=== PATIENT | female | born 1955 | race Two or more races ===

== ENCOUNTER 2016-07-12 17:05 | Emergency (ER) | payer MEDICAID ==
[~2016-07-12] VITALS: Ht 157.5 cm; Wt 68.0 kg
[~2016-07-12 17:05] MED LIST: ASPIRIN81 MG ORAL; ATENOLOL100 MG ORAL; MECLIZINE HCL25 MG ORAL
[2016-07-12 18:08] LABS: APPEARANCE,URINE SLIGHTLY CLOUDY; KETONES,URINE NEGATIVE (NEGATIVE); LEUKOCYTE ESTERASE ,URINE 3+ (NEGATIVE); NITRITE,URINE NEGATIVE (NEGATIVE); PH,URINE 7 (4.5-8.0); PROTEIN,URINE NEGATIVE (NEGATIVE); UROBILINOGEN,URINE NORMAL MG/DL (0.0-1.0)
[2016-07-12 18:13] LABS: BASOPHILS % (AUTO) 0.8 % (0.0-2.0); EOSINOPHILS % (AUTO) 1.3 % (0.0-3.0); LYMPHOCYTES % (AUTO) 31.1 % (20.0-45.0); MEAN CORPUSCULAR HEMOGLOBIN 28.8 PG (27.0-31.0); MEAN CORPUSCULAR HGB CONC 33.9 G/DL (32.0-36.0); MEAN CORPUSCULAR VOLUME 85 FL (80-99); MEAN PLATELET VOLUME 7.2 FL (6.5-10.1); MONOCYTES % (AUTO) 6.4 % (1.0-10.0); NEUTROPHILS % (AUTO) 60.4 % (45.0-75.0); PLATELET COUNT 215 K/UL (150-450); RED BLOOD COUNT 4.57 M/UL (4.20-5.40); RED CELL DISTRIBUTION WIDTH 12.2 % (11.6-14.8); WHITE BLOOD COUNT 10.5 K/UL (4.8-10.8)
[2016-07-12 18:30] LABS: ALANINE AMINOTRANSFERASE 35 U/L (3-33); ALBUMIN/GLOBULIN RATIO 1.5 (1.0-2.7); ANION GAP 17 (5-15); ASPARTATE AMINO TRANSFERASE 22 U/L (5-40); CALCIUM 9.3 mg/dL (8.6-10.2); CARBON DIOXIDE 25 mEQ/L (20-30); CHLORIDE 98 mEQ/L (98-107); CREATININE 0.8 mg/dL (0.5-0.9); GLOMERULAR FILTRATION RATE > 60 mL/min (>60); HEMOLYSIS 10; LIPASE 27 U/L (< 60); POTASSIUM 3.7 mEQ/L (3.4-4.9); SODIUM 140 mEQ/L (135-145); TOTAL PROTEIN 7.2 g/dL (6.6-8.7)
[2016-07-12] MEDS ORDERED: Morphine Sulfate 4mg/ml Inj IVP ONE (18:30)
[2016-07-12 18:38] VITALS: BP 141/48
[2016-07-12 18:50] LABS: BACTERIA,URINE MODERATE /HPF; SQUAMOUS EPITHELIAL CELL,UR FEW /LPF (NONE/OCC)
[2016-07-12 18:51] LABS: YEAST,URINE FEW /HPF
[2016-07-12] MEDS ORDERED: Ketorolac 30mg Inj IV ONE (20:15)
[2016-07-12] MEDS ORDERED: ACETAMINOPHEN-1 EAC1 ORAL (20:16)
[2016-07-12] MEDS ORDERED: NITROFURANTOIN100 M2 ORAL (20:16)
[2016-07-12 20:50] VITALS: BP 148/58
--- NOTE | 2016-07-12 22:06 | Emergency Room Report ---
History of Present Illness General Chief Complaint: Abdominal Pain Source: Patient Present Illness HPI 60-year-old female presents to ED complaining of abdominal pain. States symptoms started today. Pain is sharp. 7/10. Lower abdomen. Nonradiating. No aggravating or relieving factors. Denies fevers or chills. Denies nausea or vomiting. Denies dysuria or hematuria. Denies any other associated symptoms Allergies: Coded Allergies: PENICILLINS (Verified Allergy, 05/08/13) Patient History Past Medical History: HTN Past Surgical History: none Pertinent Family History: none Social History: Denies: alcohol use, drug use, smoking Immunizations: UTD Reviewed Nursing Documentation: PMH: Agreed, PSxH: Agreed Nursing Documentation-PMH Hx Cardiac Problems: Yes - High Cholesterol Hx Hypertension: Yes Hx Pacemaker: No Hx Asthma: No Hx COPD: No Hx Diabetes: No Hx Cancer: No Hx Gastrointestinal Problems: No Hx Dialysis: No Hx Neurological Problems: No Hx Cerebrovascular Accident: No Hx Seizures: No Review of Systems All Other Systems: negative except mentioned in HPI Physical Exam Vital Signs Date Time Temp Pulse Resp B/P Pulse Ox O2 Delivery O2 Flow Rate FiO2 07/12/16 17:32 98.1 98 16 161/86 97 Room Air Sp02 EP Interpretation: reviewed, normal General Appearance: no apparent distress, alert, GCS 15, non-toxic Head: normocephalic, atraumatic Eyes: bilateral eye PERRL, bilateral eye normal inspection ENT: hearing grossly normal, normal pharynx, no angioedema, normal voice Neck: full range of motion, supple/symm/no masses Respiratory: chest non-tender, lungs clear, normal breath sounds, speaking full sentences Cardiovascular #1: regular rate, rhythm, no edema Cardiovascular #2: 2+ carotid (R), 2+ carotid (L), 2+ radial (R), 2+ radial (L) , 2+ dorsalis pedis (R), 2+ dorsalis pedis (L) Gastrointestinal: normal bowel sounds, soft, non-distended, no guarding, no rebound, tenderness - suprapubic Rectal: deferred Genitourinary: normal inspection, no CVA tenderness Musculoskeletal: back normal, gait/station normal, normal range of motion, non- tender Neurologic: alert, oriented x3, responsive, motor strength/tone normal, sensory intact, speech normal Psychiatric: judgement/insight normal, memory normal, mood/affect normal, no suicidal/homicidal ideation Reflexes: 3+ bicep (R), 3+ bicep (L), 3+ tricep (R), 3+ tricep (L), 3+ knee (R) , 3+ knee (L) Skin: normal color, no rash, warm/dry, well hydrated Lymphatic: no adenopathy Medical Decision Making Diagnostic Impression: Primary Impression: UTI (urinary tract infection) Qualified Codes: N39.0 - Urinary tract infection, site not specified Additional Impression: Ovarian mass, left ER Course Hospital Course 60-year-old F presents to ED with lower abdominal pain Differential diagnosis includes-appendicitis, cholecystitis, small bowel obstruction, gastritis, Clinical course Patient placed on stretcher. After initial history and physical I ordered labs , IV fluids, pain medications and CT scan Labs - no leukocytosis, electrolytes ok, LFTs normal, UA + bacteria CT scan shows L adnexal solid mass - ovarian mass vs exophytic fibroid I discussed findings with patient. Recommended she followup with PMD with OB/ COMPUT[employer]INE[employer] referral I feel this is a highly complex case requiring extensive working including EKG/ Rhythm strip, Xray/CT/US, Blood/urine lab work, repeat exams while in ED, and administration of strong opiates/narcotics for pain control, admission to hospital or close patient follow up. Diagnosis - UTI, ovarian mass Stable and discharged to home with Rx Macrobid, Tylenol #3. Followup with PMD. Return to ED if symptoms recur or worsen Labs Test 07/12/16 17:41 07/12/16 17:54 Urine Color Pale yellow Urine Appearance Slightly cloudy Urine pH 7 (4.5-8.0) Urine Specific [place] 1.005 (1.005-1.035) Urine Protein Negative (NEGATIVE) Urine Glucose (UA) Negative (NEGATIVE) Urine Ketones Negative (NEGATIVE) Urine Occult Blood 1+ (NEGATIVE) Urine Nitrite Negative (NEGATIVE) Urine Bilirubin Negative (NEGATIVE) Urine Urobilinogen Normal MG/DL (0.0-1.0) Urine Leukocyte Esterase 3+ (NEGATIVE) Urine RBC 2-4 /HPF (0 - 2) Urine WBC 5-10 /HPF (0 - 2) Urine Squamous Epithelial Cells Few /LPF (NONE/OCC) Urine Bacteria Moderate /HPF (NONE) Urine Yeast Few /HPF (NONE) White Blood Count 10.5 K/UL (4.8-10.8) Red Blood Count 4.57 M/UL (4.20-5.40) Hemoglobin 13.1 G/DL (12.0-16.0) Hematocrit 38.7 % (37.0-47.0) Mean Corpuscular Volume 85 FL (80-99) Mean Corpuscular Hemoglobin 28.8 PG (27.0-31.0) Mean Corpuscular Hemoglobin Concent 33.9 G/DL (32.0-36.0) Red Cell Distribution Width 12.2 % (11.6-14.8) Platelet Count 215 K/UL (150-450) Mean Platelet Volume 7.2 FL (6.5-10.1) Neutrophils (%) (Auto) 60.4 % (45.0-75.0) Lymphocytes (%) (Auto) 31.1 % (20.0-45.0) Monocytes (%) (Auto) 6.4 % (1.0-10.0) Eosinophils (%) (Auto) 1.3 % (0.0-3.0) Basophils (%) (Auto) 0.8 % (0.0-2.0) Sodium Level 140 mEQ/L (135-145) Potassium Level 3.7 mEQ/L (3.4-4.9) Chloride Level 98 mEQ/L (98-107) Carbon Dioxide Level 25 mEQ/L (20-30) Anion Gap 17 (5-15) Blood Urea Nitrogen 10 mg/dL (7-23) Creatinine 0.8 mg/dL (0.5-0.9) Estimat Glomerular Filtration Rate > 60 mL/min (>60) Glucose Level 101 mg/dL (74-106) Calcium Level 9.3 mg/dL (8.6-10.2) Total Bilirubin 0.4 mg/dL (0.0-1.2) Aspartate Amino Transf (AST/SGOT) 22 U/L (5-40) Alanine Aminotransferase (ALT/SGPT) 35 U/L (3-33) Alkaline Phosphatase 75 U/L (35-104) Total Protein 7.2 g/dL (6.6-8.7) Albumin 4.4 g/dL (3.5-5.2) Globulin 2.8 g/dL Albumin/Globulin Ratio 1.5 (1.0-2.7) Lipase 27 U/L (< 60) CT/MRI/US Diagnostic Results CT/MRI/US Diagnostic Results : Imaging Test Ordered: CT A/P Impression 8x4.5cm L adenxal solid mass - ovarian mass vs exophytic uterine fibroid Last Vital Signs Date Time Temp Pulse Resp B/P Pulse Ox O2 Delivery O2 Flow Rate FiO2 07/12/16 20:50 83 17 148/58 98 Room Air 07/12/16 19:08 98.0 Status: improved Disposition: HOME, SELF-CARE Condition: Stable Scripts Acetaminophen With Codeine (T#3) (TYLENOL #3 TAB*) Y Tab 1 TAB ORAL Q8H Y for For Pain, #20 TAB Prov: YASEMIN PUENTE M.D. 07/12/16 Nitrofurantoin Monohyd/M-Cryst* (MACROBID 100 MG*) 100 Mg Capsule 100 MG ORAL EVERY 12 HOURS for 7 Days, CAP Prov: YASEMIN PUENTE M.D. 07/12/16 Patient Instructions: Pelvic Mass YASEMIN PUENTE M.D. Jul 12, 2016 22:06
--- NOTE | 2016-07-13 09:06 | Diagnostic Imaging Report ---
Clinical Indication: Abdominal pain Technique: No oral contrast utilized, per emergency room physician request IV administration nonionic contrast. Venous phase spiral acquisition obtained through the abdomen and pelvis. Multiplanar reconstructions were generated. Total dose length product 977 mGycm. CTDIvol(s) 17 mGy Comparison: None Findings: The appendix is not identified. However, no findings to suggest acute appendicitis are evident. No evidence of diverticulosis or diverticulitis. There is questionably wall thickening of the proximal rectum. No small bowel distention. No free or loculated intraperitoneal air or fluid is evident. The liver is diffusely hypoattenuating, consistent with fatty change. No focal abnormality. No gallstones are demonstrated. The common bile duct is dilated, measuring 14 mm diameter, but downstream obstructive lesion is demonstrated. The pancreatic duct is mildly ectatic. The pancreas is otherwise unremarkable. The spleen is unremarkable. There is a 2.6 cm left adrenal mass. This demonstrates nonspecific soft tissue attenuation. The right adrenal is unremarkable. Kidneys are unremarkable. The uterus demonstrates multiple large exophytic fibroids. The bladder is unremarkable. No adnexal mass demonstrated. The included lung bases demonstrate posterior dependent atelectatic changes. The heart is borderline enlarged. The bones are unremarkable Impression: No definite acute process Diffusely hypoattenuating liver, consistent with fatty change. Dilated common bile duct, but no downstream obstruction lesion demonstrated. Correlate with liver function tests as regards significance 2.6 cm left adrenal mass. Consider further evaluation with adrenal protocol CT or MRI Fibroid uterus Borderline cardiomegaly Posterior dependent of parenchymal atelectatic changes. This agrees with the preliminary interpretation provided overnight by Dr. Zaidi Equivocal rectal wall thickening, raising concern for proctitis or neoplasm if real. This finding was not reported on the preliminary report, but Dr. Fowler in the emergency room was notified at the time of interpretation The CT scanner at [facility] is accredited by the [employer] and the scans are performed using protocols designed to limit radiation exposure to as low as reasonably achievable to attain images of sufficient resolution adequate for diagnostic evaluation.
== END 2016-07-12 20:59 | disposition home or self-care (01) ==
LOC: EMR 17:48
DX: N39.0 Urinary tract infection, site not specified (principal); D35.02 Benign neoplasm of left adrenal gland; E78.00 Pure hypercholesterolemia, unspecified; I10 Essential (primary) hypertension; Z88.0 Allergy status to penicillin
CPT/HCPCS: 36415; 74177; 80053; 81003; 83690; 85025; 87086; 96360; 96374; 96375; 99284; J1885; J2270; J2405; Q9967